=== PATIENT | female | born 1980 | race Caucasian/White ===

== ENCOUNTER → 2019-07-02 | Outpatient (CLI) | payer OTHER, SELFPAY | PROVIDERS: Family Provider Nurse Practitioner; Visit Provider Podiatrist Foot & Ankle Surgery | DX: M84.377A Stress fracture, right toe(s), initial encounter for fracture (principal) | CPT/HCPCS: L3030 ==

== ENCOUNTER → 2019-07-19 07:58 | Outpatient (BNVA) | payer OTHER, SELFPAY | PROVIDERS: Family Provider Nurse Practitioner; PCP Nurse Practitioner; Visit Provider Podiatrist Foot & Ankle Surgery | DX: M79.671 Pain in right foot (principal); S99.929A Unspecified injury of unspecified foot, initial encounter; X58.XXXA Exposure to other specified factors, initial encounter | CPT/HCPCS: 73630 ==

== ENCOUNTER 2019-07-19 14:14 | Outpatient (CLI) | payer OTHER, SELFPAY | END 2019-07-19 14:15 | disposition home or self-care (01) | LOC: SPT 15:09 | PROVIDERS: Family Provider Nurse Practitioner; PCP Nurse Practitioner; Visit Provider Podiatrist Foot & Ankle Surgery | DX: M84.374D Stress fracture, right foot, subsequent encounter for fracture with routine healing (principal) | CPT/HCPCS: 73630; L4361 ==

== ENCOUNTER → 2019-08-08 08:11 | Outpatient (BNVA) | payer OTHER, SELFPAY | PROVIDERS: Family Provider Nurse Practitioner; PCP Nurse Practitioner; Visit Provider Podiatrist Foot & Ankle Surgery | DX: M79.671 Pain in right foot (principal); M19.071 Primary osteoarthritis, right ankle and foot | CPT/HCPCS: 73630 ==

== ENCOUNTER → 2020-04-23 16:45 | Outpatient (BNVA) | payer OTHER, SELFPAY | PROVIDERS: Family Provider Nurse Practitioner; PCP Nurse Practitioner; Visit Provider Podiatrist Foot & Ankle Surgery | DX: S99.921A Unspecified injury of right foot, initial encounter (principal) | CPT/HCPCS: 73630 ==

== ENCOUNTER 2020-05-02 14:52 | Outpatient (CLI) | payer OTHER, SELFPAY ==
--- NOTE | 2020-05-02 14:57 | MR_ITS ---
WS: [id number] MRI RIGHT FOOT without CONTRAST. COMPARISON: Radiograph 04/23/2020. Multiplanar, multisequence imaging is performed without contrast. Normal signal within the marrow and talus. The Achilles tendon is intact. Mild degenerative changes a t the first metatarsophalangeal joint. Very minimal subchondral cystic changes along the joint line o f the first metatarsal phalangeal joint. No marrow edema or healed fractures identified otherwise. Th ere is no callus formation. The tarsometatarsal alignment is normal. No soft tissue edema. Normal pos ition of the peroneal tendons. No tendinopathy. No erosions. MR/MR foot RT wo con* [id number] IMPRESSION: 1. No acute or healed fracture. 2. Mild osteoarthritis at the first metatarsophalangeal joint.
== END 2020-05-02 14:53 | disposition home or self-care (01) ==
LOC: RADSHAW 14:55
PROVIDERS: PCP Nurse Practitioner; Visit Provider Podiatrist Foot & Ankle Surgery
DX: S99.921A Unspecified injury of right foot, initial encounter (principal); X58.XXXA Exposure to other specified factors, initial encounter; M19.071 Primary osteoarthritis, right ankle and foot
CPT/HCPCS: 73718

== ENCOUNTER → 2021-07-05 15:22 | Outpatient (BNVA) | payer OTHER, SELFPAY | PROVIDERS: PCP Nurse Practitioner; Visit Provider Nurse Practitioner | DX: J02.9 Acute pharyngitis, unspecified (principal); R50.9 Fever, unspecified | CPT/HCPCS: 87071; 87400; 87880 ==

== ENCOUNTER 2021-10-02 10:29 | Outpatient (CLI) | payer OTHER, SELFPAY ==
--- NOTE | 2021-10-02 10:44 | XR_ITS ---
WS: [id number] Exam: XR shoulder LT min 2V* [id number] Date/Time of Exam: 10/02/2021 10:56 AM Reason For Exam: LEFT SHOULDER JOINT PAIN The projections of the shoulder reveal no fractures, anomalies, soft tissue swelling, or calcificatio ns. There is normal bony alignment. No irregularity of the bony architecture is noted. XR/XR shoulder LT min 2V* [id number] IMPRESSION: Negative left shoulder.
== END 2021-10-02 10:30 | disposition home or self-care (01) ==
PROVIDERS: PCP Nurse Practitioner; Visit Provider Family Medicine
DX: M25.512 Pain in left shoulder (principal)
CPT/HCPCS: 73030

== ENCOUNTER → 2021-10-22 16:52 | Outpatient (BNVA) | payer OTHER, SELFPAY | PROVIDERS: PCP Nurse Practitioner; Visit Provider Family Medicine | DX: R52 Pain, unspecified (principal) | CPT/HCPCS: 87400 ==

== ENCOUNTER 2022-09-01 07:46 | Outpatient (CLI) | payer OTHER, SELFPAY ==
--- NOTE | 2022-09-01 08:03 | MM_ITS ---
WS: [id number] BILATERAL SCREENING DIGITAL TOMOSYNTHESIS MAMMOGRAM WITH CAD HISTORY: SCREENING COMPARISON: None available. Bilateral CC and MLO views with tomosynthesis and synthetic mammography submitted. Computer aided det ection analyzed. Breast composition: There are scattered areas of fibroglandular density. No suspicious masses, microc alcifications or architectural distortion. MM/[place] [id number] IMPRESSION: BI-RADS: 1-Negative FOLLOW UP: 1 Year Follow-up
== END 2022-09-01 07:47 | disposition home or self-care (01) ==
PROVIDERS: PCP Nurse Practitioner; Visit Provider Nurse Practitioner
DX: Z12.31 Encounter for screening mammogram for malignant neoplasm of breast (principal)
CPT/HCPCS: 77063; 77067

== ENCOUNTER → 2022-11-01 16:29 | Outpatient (BNVA) | payer OTHER, SELFPAY | PROVIDERS: Referring Provider Nurse Practitioner; Visit Provider Internal Medicine | DX: R53.83 Other fatigue (principal); R63.5 Abnormal weight gain; E16.2 Hypoglycemia, unspecified; Z86.16 Personal history of COVID-19 | CPT/HCPCS: 84439; 84443; 86376; 86800; 99204 ==

== ENCOUNTER 2022-11-09 15:35 | Outpatient (CLI) | payer OTHER, SELFPAY ==
[2022-11-09 18:15] LABS: Urine Creatinine 51 mg/dL (28-217)
[2022-11-09 20:21] LABS: Creatinine 24 Hour Urine 1058.3 mg/dL (601-1689); Total Volume Urine 2075 ml
[2022-11-18 15:39] LABS: Free Cortisol Urine 9.9 mcg/24 h (4.0-50.0); Total Urine 2075 mL; Urine Creatinine 1.05 g/24 h (0.50-2.15)
== END 2022-11-09 15:36 | disposition home or self-care (01) ==
LOC: LAB 15:41
PROVIDERS: PCP Internal Medicine; Visit Provider Internal Medicine
DX: R53.83 Other fatigue (principal); R63.5 Abnormal weight gain
CPT/HCPCS: 82530; 82570

== ENCOUNTER → 2022-11-17 10:44 | Outpatient (BNVA) | payer OTHER, SELFPAY | PROVIDERS: PCP Internal Medicine; Visit Provider Internal Medicine | DX: E16.2 Hypoglycemia, unspecified (principal); R53.83 Other fatigue; R63.5 Abnormal weight gain; Z68.32 Body mass index [BMI] 32.0-32.9, adult | CPT/HCPCS: 99214 ==

== ENCOUNTER → 2022-12-22 10:44 | Outpatient (BNVA) | payer OTHER, SELFPAY | PROVIDERS: Visit Provider Internal Medicine | DX: E16.2 Hypoglycemia, unspecified (principal); Q45.3 Other congenital malformations of pancreas and pancreatic duct; R53.83 Other fatigue; R63.5 Abnormal weight gain; Z68.33 Body mass index [BMI] 33.0-33.9, adult | CPT/HCPCS: 99214 ==

== ENCOUNTER → 2023-01-25 13:21 | Outpatient (BNVA) | payer OTHER, SELFPAY | PROVIDERS: PCP Nurse Practitioner; Visit Provider Internal Medicine | DX: R53.83 Other fatigue (principal); R63.5 Abnormal weight gain; E16.2 Hypoglycemia, unspecified; Q45.3 Other congenital malformations of pancreas and pancreatic duct; Z68.34 Body mass index [BMI] 34.0-34.9, adult | CPT/HCPCS: 99214 ==

== ENCOUNTER 2023-01-28 16:19 | Outpatient (CLI) | payer OTHER, SELFPAY ==
--- NOTE | 2023-01-28 16:24 | CT_ITS ---
WS: [id number] CT ABDOMEN AND PELVIS WITH AND WITHOUT CONTRAST HISTORY: pancreatic abnormality, blood sugar variability. TECHNIQUE: 3 phase imaging of the pancreas. Unenhanced 2 mm axial imaging first performed through the abdomen. Post contrast imaging through the abdomen and pelvis. Oral contrast has not been provided. Sagittal and coronal reformats are submitted. All CT scans at [facility] use at least one of these dose optimization techniques: automated exposure control; mA and/or kV adjustment per patient size (includes targeted exams where dose is matched to clinical indication); or iterative reconstruct ion. CONTRAST: Omnipaque 300; 100 mL IV. DLP: 1808.31 mGy.cm COMPARISON: None available. Lung bases are clear. Normal size heart. Small hiatal hernia. Normal liver and spleen. Normal gallbladder and adrenal glands. Bilateral renal calcifications with i n the renal pelvis. These are nonobstructing. Small layering calcifications project into the renal pe lves. No ureteral calcifications. Normal aorta. Pancreas: Normal size pancreas with no calcification. No mass. Pancreatic duct is normal. Common bile duct at the pancreatic head is normal. No hypervascular masses or neuroendocrine tumor is identified . No additional low-attenuation mass. The adjacent SMV is normal. Stomach, small bowel and colon are negative. Normal appendix. Prior hysterectomy. Normal urinary blad ji. No destructive bone lesions. CT/CT abdomen pelvis wo/w [id number] IMPRESSION: 1. Normal pancreas. No neuroendocrine tumors are identified. 2. No hypervascular enhancing masses are identified within the abdomen or pelv is. 3. Bilateral nonobstructing renal calculi. 4. Prior hysterectomy.
[2023-01-28] MEDS: iohexol 350 mg/mL 500 mL Btl (per mL) IV (16:25)
== END 2023-01-28 16:20 | disposition home or self-care (01) ==
LOC: RAD 16:21
PROVIDERS: PCP Nurse Practitioner; Visit Provider Internal Medicine
DX: Q45.3 Other congenital malformations of pancreas and pancreatic duct (principal); N20.0 Calculus of kidney; Z90.710 Acquired absence of both cervix and uterus
CPT/HCPCS: 74178; Q9967

== ENCOUNTER 2024-12-05 09:53 | Outpatient (CLI) | payer OTHER, SELFPAY ==
--- NOTE | 2024-12-05 09:57 | MM_ITS ---
WS: [id number] BILATERAL SCREENING DIGITAL TOMOSYNTHESIS MAMMOGRAM WITH CAD HISTORY: SCREENING COMPARISON: 09/01/2022 Bilateral CC and MLO views with tomosynthesis and synthetic mammography submitted. Computer aided detection analyzed. Breast composition: There are scattered areas of fibroglandular density. No suspicious masses, microcalcifications or architectural distortion. Well- circumscribed 4 mm nodule in the central LEFT breast is stable. Benign scattered calcifications. MM/MM scr tomosynthesis [id number] IMPRESSION: BI-RADS: 2 - Benign. FOLLOW UP: 1 Year Follow-up
== END 2024-12-05 09:54 | disposition home or self-care (01) ==
PROVIDERS: PCP Nurse Practitioner; Visit Provider Nurse Practitioner
DX: Z12.31 Encounter for screening mammogram for malignant neoplasm of breast (principal); R92.323 Mammographic fibroglandular density, bilateral breasts; N63.20 Unspecified lump in the left breast, unspecified quadrant; R92.1 Mammographic calcification found on diagnostic imaging of breast
CPT/HCPCS: 77063; 77067